=== PATIENT | female | born 1995 | race Caucasian/White ===

== ENCOUNTER 2023-12-06 12:54 | Emergency (ER) | payer OTHER ==
[2023-12-06 13:31] VITALS: BP 114/75; PULSE 75; RESP 18; TEMP 98.5; BMI 22.6
[2023-12-06] MEDS: IBUPROFEN 400 MG TABLET (FP) PO ONE (14:28)
== END 2023-12-06 15:48 | disposition home or self-care (01) ==
LOC: JER 12:54 → JERFT 12:54
DX: S96.911A Strain of unspecified muscle and tendon at ankle and foot level, right foot, initial encounter (principal); S93.401A Sprain of unspecified ligament of right ankle, initial encounter; X50.1XXA Overexertion from prolonged static or awkward postures, initial encounter; Y93.B9 Activity, other involving muscle strengthening exercises
CPT/HCPCS: 73610-TC-RT-FY; 73630-TC-RT-FY; 99283-25